=== PATIENT | male | born 1935 | race Two or more races ===

== ENCOUNTER 2024-10-09 11:48 | Inpatient (IN) | payer OTHER ==
[~2024-10-09] VITALS: Ht 167.6 cm; Wt 73.5 kg
[~2024-10-09 11:48] MED LIST: CRESTOR5 MG PO; FLAGYL500MG PO; GLUCOTROL PO; INTESTINEX680 MG PO; JANUMET 50-501 UDTAB; LEVAQUIN500 MG PO; LOSARTAN POTASS50 MG PO; METROPOLOL PO; NORVASC10 MG PO; NORVASC5 MG PO; OMEPRAZOLE20 MG PO; OMEPRAZOLE40 MG PO; PERCOCET 5/3251 TAB PO; SYNTHROID150 MCG PO; TERAZOSIN HCL10 MG PO
[2024-10-09] MEDS ORDERED: PROTONIX20 MG (12:33)
[2024-10-09] MEDS ORDERED: TOPROL XL25 M1 (12:34)
[2024-10-09] MEDS ORDERED: COZAAR25 MG (12:34)
[2024-10-09] MEDS ORDERED: FARYDAK10 MG (12:35)
[2024-10-09] MEDS ORDERED: ZETIA10 MG (12:35)
[2024-10-09] MEDS ORDERED: DULOXETINE HCL40 MG (12:35)
[2024-10-09] MEDS ORDERED: CHILDREN'S ASPI81 MG (12:35)
[2024-10-09] MEDS ORDERED: METHYLPREDNISOLONE SOD SUCC 125 MG VIAL IV STA (13:16)
[2024-10-09] MEDS ORDERED: IPRATROPIUM/ALBUTEROL SULFATE 3 ML AMPUL.NEB IH SCH (13:17)
[2024-10-09] MEDS ORDERED: 0.9 % SODIUM CHLORIDE 1,000 ML IV STA (13:27)
[2024-10-09] MEDS ORDERED: METHYLPREDNISOLONE SOD SUCC 125 MG VIAL ONE (13:46)
[2024-10-09] MEDS ORDERED: IPRATROPIUM/ALBUTEROL SULFATE 3 ML AMPUL.NEB IH ONE ×2 (13:57→17:11)
[2024-10-09 14:00] LABS: HEMATOCRIT 40.6 % (39.0-48.0); HEMOGLOBIN 13.6 g/dL (13-16.00); MEAN CELL VOLUME 79.4 fL (80.0-100.00); MEAN CORPUSCULAR HEMOGLOBIN 26.7 pg (27.00-32.0); MEAN CORPUSCULAR HGB CONC 33.6 g/dl (32.0-36.0); RED BLOOD COUNT 5.11 M/uL (4.00-6.00)
[2024-10-09 14:05] LABS: PLATELET COUNT 106 K/uL (150-450)
[2024-10-09 14:16] LABS: D DIMER 0.49 MG/L; ERYTHROCYTE SEDIMENTATION RATE 17 mm/hr; PARTIAL THROMBOPLASTIN TIME 30.5 SECONDS (22.0-34.0)
[2024-10-09 14:17] LABS: INR 1.08; RED CELL DISTRIBUTION WIDTH 19.3 % (11.5-14.5)
[2024-10-09 14:18] LABS: PROTHROMBIN TIME 11.7 SECONDS (9.0-11.5)
[2024-10-09 14:45] LABS: ALBUMIN 3.9 gm/dL (3.4-5.0); BILIRUBIN TOTAL 0.48 mg/dL (0.3-1.2); CALCIUM 8.3 mg/dL (8.5-10.1); CREATININE SERUM 3.76 mg/dL (0.70-1.30); GFR 15.33; GLOBULINA 3.5 G/DL (2.4-3.5); POTASSIUM 3.68 mEq/L (3.5-5.1); TOTAL PROTEIN 7.4 gm/dL (6.4-8.2)
[2024-10-09 15:21] LABS: ABG PH 7.353 (7.35-7.45); ABG PO2 75.9 mmHg (80-100); ABG pCO2 35.8 mmHg (35-45); BASE EXCESS -5.3 mmol/l; BICARBONATE 19.4 mmol/l (23-25); Tco2 20.5 mmol/l
[2024-10-09 15:22] LABS: allen test SATISFACTORY; o2 21 %; puncture site RADIAL RIGHT
[2024-10-09 16:31] LABS: URINE APPEARANCE Clear; URINE BILIRRUBIN Negative (NEGATIVE); URINE BLOOD Negative; URINE COLOR Yellow; URINE KETONE Negative (NEGATIVE); URINE LEUKOCYTE Negative; URINE NITRATE Negative; URINE UROBILINOGEN 0.2 E.U./dl
[2024-10-09 16:36] LABS: URINE BACTERIA 25.6 uL (0.0-1933); URINE EPITHELIAL CELLS 3.9 uL (0.0-38.8)
[2024-10-09 16:39] LABS: URINE CAST 1.03 uL (0.0-1.40); URINE GLUCOSE 500 MG/DL (NEGATIVE); URINE PROTEIN 100 (NEGATIVE); URINE RBC 1.3 uL (0.0-20.8); URINE WBC 1.2 uL (0.0-23.2)
[2024-10-09] MEDS ORDERED: AZITHROMYCIN 500 MG VIAL IV SCH (17:00)
[2024-10-09] MEDS ORDERED: 0.9 % SODIUM CHLORIDE 1,000 ML IV SCH (17:45)
[2024-10-09] MEDS ORDERED: LEVALBUTEROL HCL 1.25 MG/3 ML SOLUTION IH SCH (17:58)
[2024-10-09] MEDS ORDERED: ACETAMINOPHEN 500 MG GEL..CAP PO PRN (18:00)
[2024-10-09] MEDS ORDERED: CEFTRIAXONE SODIUM 2,000 MG in 0.9 % SODIUM CHLORIDE 100 ML IV SCH (18:00)
[2024-10-09] MEDS ORDERED: AZITHROMYCIN 500 MG in DEXTROSE 5 % IN WATER 250 ML IV SCH (18:00)
[2024-10-09] MEDS ORDERED: IPRATROPIUM BROMIDE 0.5 MG/2.5 ML AMPUL.NEB IH SCH (18:00)
[2024-10-09] MEDS ORDERED: BENZONATATE 100 MG CAPSULE PO SCH (18:00)
[2024-10-09] MEDS ORDERED: TAMSULOSIN HCL 0.4 MG CAP PO SCH (18:01)
[2024-10-09] MEDS ORDERED: TAMSULOSIN HCL 0.4 MG CAP PO ONE (19:26)
[2024-10-09] MEDS ORDERED: CEFTRIAXONE SODIUM 2,000 MG VIAL ONE (19:26)
[2024-10-09] MEDS ORDERED: BENZONATATE 100 MG CAPSULE PO ONE (19:26)
[2024-10-09] MEDS ORDERED: AZITHROMYCIN 500 MG VIAL IV ONE (19:26)
[2024-10-10 02:16] VITALS: BP 107/68; O2SAT 92
[2024-10-10 05:53] LABS: PHOSPHOROUS 4.3 mg/dL (2.5-4.9); TSH 1.01 uIU/mL (0.358-3.74)
[2024-10-10] MEDS ORDERED: LEVOTHYROXINE SODIUM 137 MCG TABLET PO SCH (06:00)
[2024-10-10 08:54] VITALS: BP 167/91; O2SAT 98
[2024-10-10] MEDS ORDERED: ENOXAPARIN SODIUM 30 MG/0.3 ML SYRINGE SUBCUTANEO SCH (09:00)
[2024-10-10] MEDS ORDERED: METOPROLOL SUCCINATE 25 MG TAB.SR.24H PO SCH (09:00)
[2024-10-10] MEDS ORDERED: SERTRALINE HCL 25 MG TABLET PO SCH (09:00)
[2024-10-10] MEDS ORDERED: AMLODIPINE BESYLATE 10 MG TABLET PO SCH (09:00)
[2024-10-10] MEDS ORDERED: FAMOTIDINE/PF 20 MG in 0.9 % SODIUM CHLORIDE 8 ML IV PUSH SCH (09:00)
[2024-10-10] MEDS ORDERED: ATORVASTATIN CALCIUM 20 MG TABLET PO SCH (09:00)
[2024-10-10] MEDS ORDERED: METHYLPREDNISOLONE SOD SUCC 40 MG VIAL IV SCH (13:00)
[2024-10-10] MEDS ORDERED: DOXYCYCLINE HYCLATE 100MG IV ONE (15:43)
[2024-10-10] MEDS ORDERED: SODIUM CL 0.9% 100 ML IV.SOLN IV ONE (16:07)
[2024-10-10] MEDS ORDERED: DOXYCYCLINE HYCLATE 100MG IV SCH (17:00)
[2024-10-10 17:35] VITALS: BP 140/73; O2SAT 97
[2024-10-10] MEDS ORDERED: CODEINE/PROMETHAZINE HCL 1 ML ML PO SCH (18:33)
[2024-10-11 01:39] VITALS: BP 141/56; O2SAT 98
[2024-10-11 07:29] LABS: HEMOGLOBIN 12.4 g/dL (13-16.00); MEAN CELL VOLUME 80.5 fL (80.0-100.00); MEAN CORPUSCULAR HEMOGLOBIN 26.9 pg (27.00-32.0); MEAN CORPUSCULAR HGB CONC 33.5 g/dl (32.0-36.0); RED CELL DISTRIBUTION WIDTH 19.2 % (11.5-14.5)
[2024-10-11] MEDS ORDERED: DEXTROSE 50 % IN WATER 0.5 G/ML DISP.SYRIN IV PRN (07:30)
[2024-10-11] MEDS ORDERED: INSULIN LISPRO 1,000 UNIT/10 ML UNITS SUBCUTANEO PRN (07:30)
[2024-10-11 07:40] LABS: PLATELET COUNT 137 K/uL (150-450)
[2024-10-11 07:47] LABS: ALBUMIN 3.5 gm/dL (3.4-5.0); BILIRUBIN TOTAL 0.29 mg/dL (0.3-1.2); CALCIUM 8.1 mg/dL (8.5-10.1); CREATININE SERUM 2.73 mg/dL (0.70-1.30); GFR 22.18; GLOBULINA 3.2 G/DL (2.4-3.5); MAGNESIUM 1.9 mg/dL (1.8-2.4); POTASSIUM 4.07 mEq/L (3.5-5.1); TOTAL PROTEIN 6.7 gm/dL (6.4-8.2)
[2024-10-11 07:49] LABS: C-REACTIVE PROTEIN 0.37 MG/DL (0.00-0.29)
[2024-10-11 07:52] LABS: MYCOPLASMA PNEUMONIAE IGM NON REACTIVE (NO REACTIVE)
[2024-10-11 08:33] VITALS: BP 126/52; O2SAT 97
[2024-10-11] MEDS ORDERED: DOXYCYCLINE HYCLATE 100MG IV ONE ×2 (16:09)
== END 2024-10-11 17:15 | disposition home or self-care (01) | DRG 202 ==
LOC: ER 11:49 → MEDJ 18:26
PROVIDERS: General Practice; Internal Medicine Infectious Disease; Internal Medicine Nephrology; ADMIT Internal Medicine; ATTEND Internal Medicine
PROC: BB24ZZZ Computerized Tomography (CT Scan) of Bilateral Lungs (ICD-10-PCS; principal; 2024-10-09)
PROC: BT4JZZZ Ultrasonography of Kidneys and Bladder (ICD-10-PCS; 2024-10-09)
PROC: 3E0F7GC Introduction of Other Therapeutic Substance into Respiratory Tract, Via Natural or Artificial Opening (ICD-10-PCS; 2024-10-10)
DX: J45.901 Unspecified asthma with (acute) exacerbation (principal); N17.8 Other acute kidney failure; R09.02 Hypoxemia; E11.9 Type 2 diabetes mellitus without complications; Z79.4 Long term (current) use of insulin; I10 Essential (primary) hypertension; E03.9 Hypothyroidism, unspecified; Z87.891 Personal history of nicotine dependence; F32.A Depression, unspecified